=== PATIENT | male | born 1950 | race Caucasian/White ===

== ENCOUNTER 2024-10-12 10:03 | Day surgery (SDC) | payer OTHER, MEDICARE ==
[2024-10-09 14:10] LABS: BASOPHILS # (AUTO) 0.1 X10'3 (0-0.2); BASOPHILS % (AUTO) 0.9 % (0-1); EOSINOPHILS # (AUTO) 0.1 X10'3 (0-0.9); EOSINOPHILS % (AUTO) 2.5 % (0-6); LYMPHOCYTES # (AUTO) 1.5 X10'3 (1.1-4.8); MEAN CORPUSCULAR HEMOGLOBIN 29.7 PG (27.0-31.0); MEAN CORPUSCULAR HGB CONC 32.4 g/dL (33.0-36.5); MEAN CORPUSCULAR VOLUME 91.5 FL (78-98); MEAN PLATELET VOLUME 9.1 FL (7.4-10.4); MONOCYTES # (AUTO) 0.7 X10'3 (0-0.9); MONOCYTES % (AUTO) 11.7 % (2-12); NEUTROPHILS # (AUTO) 3.6 X10'3 (1.8-7.7); NEUTROPHILS % (AUTO) 59.9 % (42-75); PRE OP HEMATOCRIT 47.1 % (42.0-52.0); PRE OP HEMOGLOBIN 15.3 g/dL (14.0-17.9); PRE OP PLATELET COUNT 117 X10'3 (140-440); RED BLOOD COUNT 5.15 X10'6 (4.70-6.10); RED CELL DISTRIBUTION WIDTH 16.6 % (11.5-14.5)
[2024-10-09 14:28] LABS: ALBUMIN 3.6 G/DL (3.4-5.0); ALBUMIN/GLOBULIN RATIO 1.1 (1.1-1.5); ALKALINE PHOSPHATASE 142 IU/L (46-116); BLOOD UREA NITROGEN 41 MG/DL (7-18); BUN/CREATININE RATIO 30.6 (10.0-20.0); CALCIUM 8.8 MG/DL (8.5-10.1); CHLORIDE 105 MMOL/L (99-107); CREATININE 1.34 MG/DL (0.60-1.10); PRE OP ALT 33 U/L (30-65); PRE OP ANION GAP 10 (8-16); PRE OP AST 24 U/L (10-37); PRE OP BILIRUB, TOTAL 0.9 MG/DL (0.0-1.0); PRE OP GLUCOSE 138 MG/DL (70-104); PRE OP POTASSIUM 4.4 MMOL/L (3.4-5.1); PRE OP SODIUM 143 MMOL/L (135-145); TOTAL CARBON DIOXIDE 28.2 MMOL/L (24-32); eGFR 52 ML/MIN
[2024-10-09 15:04] LABS: CLARITY,URINE CLEAR (Clear); COLOR,URINE YELLOW (Yellow); UA COLLECTION TYPE CLN CATCH MIDSTREAM
[2024-10-09 15:05] LABS: BILIRUBIN,URINE NEGATIVE (Neg); GLUCOSE, URINE NEGATIVE (Neg); KETONES,URINE NEGATIVE (Neg); LEUKOCYTE ESTERASE ,URINE NEGATIVE (Neg); NITRITES, URINE NEGATIVE (Neg); OCCULT BLOOD,URINE NEGATIVE (Neg); PH,URINE 5.5 (4.8-8.0); PROTEIN,URINE NEGATIVE (Neg); UROBILINOGEN,URINE 0.2 E.U/dL (0.2-1.0)
[~2024-10-12] VITALS: Ht 195.6 cm; Wt 101.0 kg
[2024-10-12] VITALS (11 sets, daily range): BP systolic 108–131; BP diastolic 71–89; PULSE 56–79; RESP 14–16; TEMP 97.5; O2SAT 96–100
[2024-10-12] MEDS: ceFAZolin 2gm in dextrose, iso 50 ML IV ONE (05:30)
[~2024-10-12 10:03] MED LIST: ALLO100T PO; BUPR150T8 PO; CARV-50 PO; DIGO125T PO; DOCUMENT DATE & TIME OF BETA-BLOCKER PO ONE; EMPA25TA PO; FLO0.4C PO; FURO-150 PO; GABA-1555 PO; HYDR-3972 PO; INSU300I12; KETO-96 EACHEYE; METF-436 PO; MULT-1249 PO; NITR0.4T51 SL; PRAV10TA39 PO; REM15T PO; RIVA20TA PO; SACU1TAB; SENN-360 PO; TEST1.25 TD; [UNRECOGNIZED DRUG - CODE]
[2024-10-12] MEDS: famotidine 20mg tablet PO ONE (12:02)
[2024-10-12] MEDS: ringers solution, lacted 1,000 ML IV SCH (12:04)
[2024-10-12] MEDS ORDERED: bacitracin 15gm ointment TP ONE (14:03)
[2024-10-12] MEDS ORDERED: propofol inj 20 ML IV ONE (14:08)
[2024-10-12] MEDS ORDERED: fentaNYL/PF 50MCG/1 ML 2ML syringe ONE (14:08)
[2024-10-12] MEDS ORDERED: midazolam 1 mg/ML 2ml injection ONE (14:08)
[2024-10-12] MEDS ORDERED: sevoflurane 250ml liquid IH ONE (14:12)
[2024-10-12] MEDS ORDERED: morphine 4 MG/ML inj SYRINge IV PRN (16:05)
[2024-10-12] MEDS ORDERED: ondansetron/PF 4mg/2ml inj IV PRN (16:05)
[2024-10-12] MEDS ORDERED: HYDROmorphone/PF 0.2 MG/ML SYRINGE IV PRN ×2 (16:05)
[2024-10-12] MEDS ORDERED: acetaminophen 1,000mg/100ml IV 100 ML IV PRN (16:05)
[2024-10-12] MEDS ORDERED: morphine 2 MG/ML inj. syringe IV PRN (16:05)
[2024-10-12] MEDS ORDERED: ringers solution, lacted 1,000 ML IV SCH (16:05)
== END 2024-10-12 17:35 | disposition home or self-care (01) ==
LOC: PAS 10:03
PROVIDERS: ATTEND Podiatrist Foot & Ankle Surgery
DX: M24.574 Contracture, right foot (principal); Q66.71 Congenital pes cavus, right foot; M10.9 Gout, unspecified; I10 Essential (primary) hypertension; I48.91 Unspecified atrial fibrillation; E11.40 Type 2 diabetes mellitus with diabetic neuropathy, unspecified; F43.10 Post-traumatic stress disorder, unspecified; Z98.890 Other specified postprocedural states; G43.909 Migraine, unspecified, not intractable, without status migrainosus; G62.9 Polyneuropathy, unspecified; E78.5 Hyperlipidemia, unspecified; Z79.899 Other long term (current) drug therapy; Z86.14 Personal history of Methicillin resistant Staphylococcus aureus infection; Z88.2 Allergy status to sulfonamides; Z88.8 Allergy status to other drugs, medicaments and biological substances; Z95.0 Presence of cardiac pacemaker
CPT/HCPCS: 28270; 28285; 28306; 36415; 73620; 80053; 81003; 82948; 85025; A6223; C1713; J0690; J2250; J2704; J3010; J7030; J7120; Z7506; Z7508; Z7512; 76000; A4215; A4618; A6449; A7000